=== PATIENT | male | born 1970 | race Caucasian/White ===

== ENCOUNTER 2021-02-21 10:37 | Emergency (ER) | payer BC ==
[2021-02-21 11:38] LABS: HEMOGLOBIN 17.7 gm/dl (14.0-17.5); WHITE BLOOD COUNT 12.9 K/UL (4.5-11.0)
[2021-02-21 11:58] LABS: BUN/CREATININE RATIO 7 (0-10)
== END 2021-02-21 13:05 | disposition home or self-care (01) ==
LOC: ER1 10:37
PROVIDERS: Emergency Medicine
DX: T75.01XA Shock due to being struck by lightning, initial encounter (principal); R73.9 Hyperglycemia, unspecified; R09.02 Hypoxemia; R42 Dizziness and giddiness
CPT/HCPCS: 36600; 71045; 80053; 82550; 82553; 82803; 83874; 84484; 85025; 93005; 99285